=== PATIENT | male | born 1960 | race Two or more races ===

== ENCOUNTER → 2019-08-25 | Outpatient (CLI) | payer OTHER ==
--- NOTE | 2019-08-25 15:26 | RAD ---
EXAM: Right hand, 2 views. HISTORY: Trauma. COMPARISON: None. FINDINGS: 2 views of the right hand are obtained. There is no fracture, dislocation or subluxation. IMPRESSION: No acute osseous finding. Electronically signed by: Arely Polo MD (08/25/2019 3:23 PM) [place] [id number]
== END | disposition home or self-care (01) ==
LOC: RAD 13:29
PROVIDERS: ATTEND Family Medicine
DX: S69.91XA Unspecified injury of right wrist, hand and finger(s), initial encounter (principal); Y93.89 Activity, other specified; Y92.89 Other specified places as the place of occurrence of the external cause; Y99.8 Other external cause status
CPT/HCPCS: 73120